=== PATIENT | male | born 1970 | race Caucasian/White ===

== ENCOUNTER 2020-01-25 10:59 | Emergency (ER) | payer BC ==
[2020-01-25 11:10] VITALS: BP 152/100
--- NOTE | 2020-01-25 11:58 | XRAY Report ---
Reason: dropped metal plate onto foot, foot pain Procedure Date: 01/25/2020 Accession Number: [id number] / [id number] Procedure: XR - Foot 3 View LT CPT Code: Final Report FULL RESULT: EXAM: LEFT FOOT RADIOGRAPHY EXAM DATE: 01/25/2020 11:44 AM. CLINICAL HISTORY: Dropped metal plate onto foot, foot pain. COMPARISON: None. TECHNIQUE: 3 views. FINDINGS: Bones: Focal cortical irregularity lateral view dorsal aspect distal shaft first or second metatarsal. Joints: Normal. No subluxations. Soft Tissues: Soft tissue swelling or hematoma dorsal aspect forefoot. IMPRESSION: 1. Soft tissue swelling or hematoma dorsal aspect forefoot lateral view. 2. Focal cortical irregularity dorsal aspect distal shaft first or second metatarsals lateral view. Possible focal cortical fracture. RADIA
--- NOTE | 2020-01-25 12:28 | ED Physician Documentation ---
PD HPI LOWER EXT INJURY - Stated complaint Stated Complaint: LT FOOT INJURY - Chief complaint Chief Complaint: Ext Problem - History obtained from History obtained from: Patient - History of Present Illness PD HPI LOW EXT INJURY LOCATION: Left, Foot Type of injury: Blunt / blow Where injury occurred: Home Timing - onset: How many days ago (3) Timing - duration: Days (3) Timing - details: Abrupt onset, Still present Improved by: Rest, Immobilization Worsened by: Moving, Palpating Associated symptoms: Swelling, Discolored. No: Weakness, Numbness Contributing factors: No: Anticoagulated Similar symptoms before: Has not had sx before - Additional information Additional information: 49-year-old male dropped a heavy metal plate on his steel toed boot 3 days ago. He has a lot of swelling to the dorsum of the foot he has been walking on his heel and he states that as long as he is not on his foot and laying he has no significant pain he does not think he needs any pain medication he is worried about a fracture. Review of Systems Constitutional: denies: Fever Ears: denies: Ear pain Nose: denies: Congestion Throat: denies: Sore throat Respiratory: denies: Dyspnea, Cough GI: denies: Abdominal Pain, Nausea, Vomiting : denies: Dysuria, Frequency PD PAST MEDICAL HISTORY - Past Medical History Past Medical History: No - Allergies Allergies/Adverse Reactions: Allergies Allergy/AdvReac Type Severity Reaction Status Date / Time naproxen Allergy Unknown Verified 01/25/20 11:10 Penicillins Allergy Unknown Verified 01/25/20 11:10 - Social History Does the pt smoke?: Yes Smoking Status: Current every day smoker Does the pt drink ETOH?: Yes Does the pt have substance abuse?: No - Immunizations Immunizations are current?: No - POLST Patient has POLST: No PD ED PE NORMAL - Vitals Vital signs reviewed: Yes (hyperetensive) - General General: Alert and oriented X 3, No acute distress, Well developed/nourished - HEENT HEENT: Atraumatic, PERRL, EOMI - Respiratory Respiratory: No respiratory distress - Derm Derm: Normal color, Warm and dry, No rash - Extremities Extremities: Other (There is swelling and point tenderness over the dorsum of t he left foot. There is an abrasion to the dorsum of the foot as well over the maximum impact site. There is no specific point tenderness over the distal first or second metatarsal. There is swelling and ecchymosis to all of the toes. 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 Soft tissue swelling or hematoma dorsal aspect forefoot lateral view. Focal cortical irregularity dorsal aspect distal shaft first or second metatarsal lateral view possible focal cortical fracture.), EMP read indepedently, See rad report PD MEDICAL DECISION MAKING - ED course Complexity details: reviewed results, considered differential, d/w patient ED course: 49-year-old male with a contusion to the left foot is able to bear weight on his heel he is given crutches for ambulation as I believe this will help. He will expect resolution in 10 to 14 days with conservative therapy. Departure - Departure Disposition: 01 Home, Self Care Clinical Impression: Contusion of left foot Qualifiers: Encounter type: initial encounter Qualified Code(s): S90.32XA - Contusion of left foot, initial encounter Condition: Stable Instructions: ED Contusion Foot Follow-Up: [facility] [Provider Group]
== END 2020-01-25 13:28 | disposition home or self-care (01) ==
LOC: ED 10:59
DX: S90.812A Abrasion, left foot, initial encounter (principal); S90.32XA Contusion of left foot, initial encounter; W20.8XXA Other cause of strike by thrown, projected or falling object, initial encounter; Y92.009 Unspecified place in unspecified non-institutional (private) residence as the place of occurrence of the external cause; F17.200 Nicotine dependence, unspecified, uncomplicated
CPT/HCPCS: 99282; 99283

== ENCOUNTER 2023-08-26 18:46 | Emergency (ER) | payer BC ==
[2023-08-26] MEDS ORDERED: MORPHINE 2 MG/ML CARPUJECT IVP STA (19:17)
--- NOTE | 2023-08-26 19:18 | ED Physician Documentation ---
PD HPI CHEST PAIN - Stated complaint Stated Complaint: CHEST PX/SOA - Chief complaint Chief Complaint: Cardiac - History obtained from History obtained from: Patient - Additional information Additional information: 53-year-old gentleman with no known history of heart disease. He is a smoker. Otherwise has no identifiable risk factors for heart disease. Sudden onset sharp substernal chest pain with mild radiation to the anterior neck starting about an hour ago. It gets worse if he takes a deep breath. He is short of breath with it. Denies pedal edema or calf pain. He had a recent pelvic fr acture but was not bedbound. PD PAST MEDICAL HISTORY - Past Medical History Past Medical History: No - Past Surgical History Past Surgical History: No - Present Medications Home Medications: Ambulatory Orders Medication Instructions Recorded Confirmed HYDROcod/ACETAM 5/325 [[place] 5/325] 1 tab PO Q4H PRN 08/26/23 08/26/23 - Allergies Allergies/Adverse Reactions: Allergies Allergy/AdvReac Type Severity Reaction Status Date / Time naproxen Allergy Unknown Verified 08/26/23 19:14 Penicillins Allergy Unknown Verified 08/26/23 19:14 - Social History Does the pt smoke?: Yes Smoking Status: Current every day smoker Does the pt drink ETOH?: Yes ETOH Use: Beer Does the pt have substance abuse?: No - Immunizations Immunizations are current?: No - POLST Patient has POLST: No PD ED PE NORMAL - Vitals Vital signs reviewed: Yes - General General: Alert and oriented X 3, Other (Appears uncomfortable) - HEENT HEENT: PERRL, EOMI - Neck Neck: Supple, no meningeal sign, No bony TTP - Cardiac Cardiac: RRR, No murmur - Respiratory Respiratory: No respiratory distress, Clear bilaterally, Other ([place] with deep breathing) - Abdomen Abdomen: Non tender - Extremities Extremities: No edema, No calf tenderness / cord - Neuro Neuro: Alert and oriented X 3, Normal speech Results - Vitals Vitals: Vital Signs - 24 hr 08/26/23 08/26/23 08/26/23 19:06 19:30 20:00 Temperature 36.6 C Heart Rate 89 91 95 Respiratory 18 21 20 Rate Blood Pressure 97/80 115/91 H 113/81 H O2 Saturation 96 97 95 08/26/23 08/26/23 08/26/23 20:30 21:00 21:30 Temperature Heart Rate 94 93 93 Respiratory 21 20 20 Rate Blood Pressure 127/100 H 113/86 H O2 Saturation 95 95 95 Oxygen O2 Source Room air - EKG (time done) 1904 EKG releavant findings:: EKG personally interpreted by author of this note. Relevant findings are: Rate: Rate (enter#) (87) Rhythm: NSR [place]: Normal Intervals: Normal [place] QRS: Normal Ischemia: No: ST elevation c/w ischemia Computer interpretation: Agree with computer 1929 EKG releavant findings:: EKG personally interpreted by author of this note. Relevant findings are: Rate: Rate (enter#) (89) Rhythm: NSR [place]: Normal Intervals: Normal [place] QRS: Normal Ischemia: No: ST elevation c/w ischemia Computer interpretation: Agree with computer - Labs Labs: Laboratory Tests 08/26/23 08/26/23 08/26/23 19:11 19:26 19:26 WBC 18.6 H RBC 4.38 L Hgb 13.9 L Hct 41.6 L MCV 95.0 H MCH 31.7 H MCHC 33.4 RDW 13.2 Plt Count 437 MPV 8.2 Neut # (Auto) 11.8 H Lymph # (Auto) 4.5 H [place] # (Auto) 1.5 H Eos # (Auto) 0.6 Baso # (Auto) 0.1 Absolute Nucleated RBC 0.00 Band Neuts % (Manual) Not Reportable Abnorm Lymph % (Manual) Not Reportable Nucleated RBC % 0.0 Neutrophils # (Manual) Not Reportable Lymphocytes # (Manual) Not Reportable Monocytes # (Manual) Not Reportable Eosinophils # (Manual) Not Reportable Basophils # (Manual) Not Reportable Differential Comment MANUAL=AUTO DIFF Manual Slide Review Indicated Platelet Estimate NORMAL (130-450,000) Platelet Morphology NORMAL APPEARANCE RBC Morph Micro Appear NORMAL APPEARANCE D-Dimer 235.0 Sodium 136 Potassium 4.2 Chloride 101 Carbon Dioxide 29 Anion Gap 6.0 BUN 6 Creatinine 0.8 Estimated GFR (MDRD) 101 Glucose 93 Calcium 8.7 Total Bilirubin 0.3 AST 21 ALT 14 Alkaline Phosphatase 97 Troponin I High Sens 3.3 Total Protein 6.4 Albumin 3.9 Globulin 2.5 Albumin/Globulin Ratio 1.6 Lipase 33 Ethyl Alcohol 239.0 08/26/23 21:24 WBC RBC Hgb Hct MCV MCH MCHC RDW Plt Count MPV Neut # (Auto) Lymph # (Auto) [place] # (Auto) Eos # (Auto) Baso # (Auto) Absolute Nucleated RBC Band Neuts % (Manual) Abnorm Lymph % (Manual) Nucleated RBC % Neutrophils # (Manual) Lymphocytes # (Manual) Monocytes # (Manual) Eosinophils # (Manual) Basophils # (Manual) Differential Comment Manual Slide Review Platelet Estimate Platelet Morphology RBC Morph Micro Appear D-Dimer Sodium Potassium Chloride Carbon Dioxide Anion Gap BUN Creatinine Estimated GFR (MDRD) Glucose Calcium Total Bilirubin AST ALT Alkaline Phosphatase Troponin I High Sens 4.0 Total Protein Albumin Globulin Albumin/Globulin Ratio Lipase Ethyl Alcohol PD Medical Decision Making - ED course ED course: 53-year-old gentleman presents with acute chest pain. Appears uncomfortable and has borderline hypotension. His examination is otherwise unremarkable. Initial EKG done at 1904 and I was concerned that potentially had hyperacute T waves in V2, this repeated after 25 minutes and really was without significant interval change. Subsequently his pain got much better and was pretty pleuritic. D-dimer ruled out thromboembolic disease. No widened mediastinum. Does have nonspecific leukocytosis for which follow-up was recommended. CMP unremarkable and delta troponins over a few hours were negative. Departure - Departure Disposition: 01 Home, Self Care Clinical Impression: Pleurisy Alcohol intoxication Qualifiers: Complication of substance-induced condition: uncomplicated Qualified Code(s): F10.920 - Alcohol use, unspecified with intoxication, uncomplicated Condition: Good Record reviewed to determine appropriate education?: Yes Instructions: ED Chest Pain NonCardiac, ED Alcohol Intoxication Comments: You were seen today for chest pain, the pattern is consistent with pleurisy. You can take ibuprofen for this as long as you are not allergic. The heart work-up was negative with negative troponins x2 and an EKG without findings of worry. We also ruled out for blood clots with a negative D-dimer. Your blood alcohol was quite elevated (239) recommend decreasing alcohol use. Call your doctor to arrange a follow-up appointment, make the next available appointment. In the interim, return anytime if worse or if new symptoms develop. Forms: PCP List
[2023-08-26 19:32] LABS: BASOPHILS # (AUTO) 0.1 10^3/uL (0.0-0.1); BASOPHILS % (AUTO) 0.8 %; EOSINOPHILS # (AUTO) 0.6 10^3/uL (0.0-0.7); EOSINOPHILS % (AUTO) 3.2 %; HCT - HEMATOCRIT 41.6 % (42.0-52.0); HGB - HEMOGLOBIN 13.9 g/dL (14.0-18.0); LYMPHOCYTES # (AUTO) 4.5 10^3/uL (1.5-3.5); LYMPHOCYTES % (AUTO) 24.3 %; MEAN CORPUSCULAR HEMOGLOBIN 31.7 pg (27.0-31.0); MEAN CORPUSCULAR HGB CONC 33.4 g/dL (32.0-36.0); MEAN PLATELET VOLUME 8.2 fL (7.4-11.4); MONOCYTES # (AUTO) 1.5 10^3/uL (0.0-1.0); MONOCYTES % (AUTO) 8.3 %; NEUTROPHILS # (AUTO) 11.8 10^3/uL (1.5-6.6); NEUTROPHILS % (AUTO) 63.1 %; PLT - PLATELET COUNT 437 10^3/uL (130-450); RED BLOOD COUNT 4.38 10^6/uL (4.70-6.10); RED CELL DISTRIBUTION WIDTH 13.2 % (12.0-15.0); WHITE BLOOD COUNT 18.6 x10^3/uL (4.8-10.8)
[2023-08-26 19:45] LABS: SLIDE REVIEW? Indicated
--- NOTE | 2023-08-26 19:48 | XRAY Report ---
PROCEDURE: Chest 1 View X-Ray INDICATIONS: Chest Pain TECHNIQUE: One view of the chest was acquired. COMPARISON: None. FINDINGS: Surgical changes and devices: None. Lungs and pleura: Low lung volumes. Possible mild bibasilar opacities. Mediastinum: Normal heart size Bones and chest wall: Degenerative changes IMPRESSION: Low lung volumes on portable radiograph, limiting evaluation. Mild possible bibasilar opacities could represent early airspace disease versus atelectasis. Consider future imaging surveillance to assess for resolution. Reviewed by: Roshan House MD on 08/26/2023 7:46 PM PST Approved by: Roshan House MD on 08/26/2023 7:46 PM PST Station ID: [id number]
[2023-08-26 20:05] LABS: ALBUMIN 3.9 g/dL (3.2-5.5); ALBUMIN/GLOBULIN RATIO 1.6 (1.0-2.2); BILIRUBIN,TOTAL 0.3 mg/dL (0.2-1.0); CALCIUM 8.7 mg/dL (8.5-10.3); CREATININE 0.8 mg/dL (0.6-1.3); POTASSIUM 4.2 mmol/L (3.5-4.5); TOTAL PROTEIN 6.4 g/dL (6.4-8.9)
[2023-08-26 20:38] LABS: PLATELET ESTIMATE, MANUAL NORMAL (130-450,000) (NORMAL); PLATELET MORPHOLOGY NORMAL APPEARANCE (NORMAL); RBC MORPHOLOGY (MULTIPLE) NORMAL APPEARANCE (NORMAL)
[2023-08-26 20:39] LABS: DIFFERENTIAL COMMENT MANUAL=AUTO DIFF
[2023-08-26 20:56] LABS: TROPONIN I HIGH SENSITIVITY 3.3 ng/L (2.3-19.7)
[2023-08-26 22:07] VITALS: BP 100/84; O2SAT 94
== END 2023-08-26 22:07 | disposition home or self-care (01) ==
LOC: ED 18:46
DX: R09.1 Pleurisy (principal); F10.129 Alcohol abuse with intoxication, unspecified; Y90.7 Blood alcohol level of 200-239 mg/100 ml; F17.200 Nicotine dependence, unspecified, uncomplicated
CPT/HCPCS: 36415; 80053; 80320; 83690; 84484; 85025; 85379; 93005; 96374; 99283